=== PATIENT | male | born 1985 | race Caucasian/White ===

== ENCOUNTER 2016-11-24 12:43 | Emergency (ER) | payer SELFPAY ==
[~2016-11-24] VITALS: Ht 188 cm; Wt 86.0 kg
[~2016-11-24 12:43] MED LIST: PROZ20CA11 PO; XANA0.5T PO
[2016-11-24 12:52] VITALS: BP 133/80; PULSE 92; RESP 22; TEMP 98.4; O2SAT 97
[2016-11-24 13:00] VITALS: BP 129/80; PULSE 88
[2016-11-24] MEDS ORDERED: ONDANSETRON HCL 4 MG/2 ML VIAL IVP ONE (13:00)
[2016-11-24] MEDS ORDERED: TETANUS/DIPHTHERIA TOXOID ADULT 0.5 ML VIAL IM ONE (13:00)
[2016-11-24] MEDS ORDERED: SODIUM CHLORIDE 0.9% FLUSH 10 ML FLUSH IVF PRN (13:00)
[2016-11-24] MEDS ORDERED: MORPHINE SULFATE 4 MG/ML INJ IV PUSH ONE (13:00)
[2016-11-24] MEDS ORDERED: LIDOCAINE 1%/EPINEPHrine 1:100,000 SOLN 20 ML VIAL INFIL ONE (13:00)
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
[2016-11-24 13:24] LABS: AUTOMATED NEUTROPHIL # 18.4 TH/MM3 (1.8-7.7); BASOPHIL % 0.1 % (0.0-2.0); EOSINOPHIL # 0.1 TH/MM3 (0-0.4); EOSINOPHIL % 0.4 % (0.0-4.0); HEMATOCRIT 42.3 % (39.0-51.0); HEMO FLAGS DIFF FINAL; LYMPH % 6.1 % (9.0-44.0); LYMPHOCYTE # 1.3 TH/MM3 (1.0-4.8); MEAN CELL VOLUME 83.7 FL (80.0-100.0); MEAN CORPUSCULAR HEMOGLOBIN 28.8 PG (27.0-34.0); MEAN CORPUSCULAR HGB CONC 34.4 % (32.0-36.0); MONO % 8.5 % (0.0-8.0); NEUT % 84.9 % (16.0-70.0); PLATELET COUNT 323 TH/MM3 (150-450); RED BLOOD COUNT 5.06 MIL/MM3 (4.50-5.90); RED CELL DISTRIBUTION WIDTH 13.1 % (11.6-17.2); WHITE BLOOD COUNT 21.7 TH/MM3 (4.0-11.0)
[2016-11-24 13:36] LABS: BICARBONATE 25.3 MEQ/L (21.0-32.0); POTASSIUM 3.3 MEQ/L (3.5-5.1)
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
[2016-11-24 14:45] VITALS: BP 139/76; PULSE 90; RESP 20; O2SAT 100
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
[2016-11-24 15:08] VITALS: RESP 16
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
[2016-11-24] MEDS ORDERED: HYDR-3533 PO (16:07)
[2016-11-24] MEDS ORDERED: CEPH-460 PO (16:07)
[2016-11-24] MEDS ORDERED: NAPR500T PO (16:07)
[2016-11-24] MEDS ORDERED: POTASSIUM CHLORIDE 25 MEQ EFFERVESCENT TAB PO ONE (16:15)
[2016-11-24] MEDS ORDERED: ACETAMINOPHEN/HYDROcodone 325 MG/5 MG TAB PO ONE (17:00)
== END 2016-11-24 17:15 ==
LOC: NEPE 12:43
DX: S00.12XA Contusion of left eyelid and periocular area, initial encounter (principal); S51.821A Laceration with foreign body of right forearm, initial encounter; D72.829 Elevated white blood cell count, unspecified; Y04.2XXA Assault by strike against or bumped into by another person, initial encounter; Y93.89 Activity, other specified; Y92.89 Other specified places as the place of occurrence of the external cause; Y99.8 Other external cause status
CPT/HCPCS: 12002; 70450; 70486; 71010; 72125; 73060; 73090; 80048; 85025; 96374; 96375; 99285; J2270; J2405